=== PATIENT | male | born 1935 | race Caucasian/White ===

== ENCOUNTER → 2020-03-05 | Outpatient (CLI) | payer MEDICARE ==
[2020-03-05] VITALS (15 sets, daily range): BP systolic 136–194; BP diastolic 81–105
--- NOTE | 2020-03-05 12:47 | NUR ---
PATIENT PORT A CATH ACCESSED FOR PROCEDURE FOLLOWING GUIDELINES IN OUR POLICY AND PROCEDURE. WHEN DE-ACCESSING AND PACKING THE PORT, IT FLUSHED WITHOUT DIFFICULTY HOWEVER WHEN ENGAGING IN MAINTAINING THE PORT FOR FUTURE USE, WHEN PULLING THE NEEDLE OUT OF THE PORT SEPTUM, BLOOD CAME OUT OF THE PORT WITH FORCE. PRESSURE DRESSING PLACED BOLA THE PUNCTURE SITE AND HEMOSTASIS ACHIEVED AFTER 2-3 MIN OF HOLDING PRESSURE. DISCUSSED WITH DR. ALEXANDER AND CONSULTED DR. MAYA FOR GUIDANCE AND BOTH SAID IT WAS NOTHING TO WORRY ABOUT.
--- NOTE | 2020-03-05 13:25 | TEE ---
[place] [address] TRANSESOPHAGEAL ECHOCARDIOGRAM Name: JENNA GARCIA JR Room: [facility]#: [id number] Admission: 03/05/20 Attend Phys: Ash Huffman MD Discharge: Date of : 31 Date of Service: 03/05/20 1325 Report #: [id number] THIS REPORT FOR: cc: Boom Eaton John E. DO Blick,Ash Hyde MD [facility] ~ APPROVED REPORT Study performed: 03/05/2020 10:05:44 EXAM: Transesophageal Echocardiogram Patient Location: [facility] BSA: 2.29 HR: 83 bpm BP: 161/93 mmHg Other Information Study Quality: Good Indications Atrial Fibrillation Echo Enhancing Agent Indication: evaluate watchman Agent(s) / Amount(s) Used: Agitated Saline cc Procedure After obtaining informed consent, patient underwent transesophageal echo in the [facility]. Type of Sedation : Conscious Sedation Sedation was administered by Diony Ureña RN. Sedation was achieved intravenously with: Versed (8) Fentanyl (125) Transesophageal probe was inserted and advanced into esophagus without difficulty by Ash Huffman MD, [facility]. Echo enhancement indication: R/O Septal defect. Echo enhancement agent administered: Agitated Saline The KATH was performed without complications. Throughout the procedure, the blood pressure, pulse oximetry, cardiac rhythm, and rate were monitored. The patient tolerated the procedure without adverse effects. Recovery from conscious sedation was uneventful and [place] [address] TRANSESOPHAGEAL ECHOCARDIOGRAM Name: JENNA GARCIA JR Room: [facility]#: [id number] Admission: 03/05/20 Attend Phys: Ash Huffman MD Discharge: Date of : 31 Date of Service: 03/05/20 1325 Report #: [id number] Left Ventricle The left ventricle is normal size. There is normal LV segmental wall motion. There is normal left ventricular wall thickness. The left ventricular systolic function is normal. The left ventricular ejection fraction is within the normal range. LVEF is 55-60%. Right Ventricle The right ventricle is normal size. Atria Watchman Device is present in the left atrial appendage with no motion noted. No flow noted by color doppler Left atrium is moderately dilated. Injection of bubbles documented no interatrial shunt. Right atrium is mildly dilated. tranvenous catheter noted in the right atrium Aortic Valve The Aortic valve is sclerotic. Trace aortic regurgitation. Mitral Valve The mitral valve is normal in structure. moderate Mitral regurgitation jet is eccentrically directed. Tricuspid Valve The tricuspid valve is normal in structure. Trace tricuspid regurgitation. Pulmonic Valve The pulmonary valve is normal in structure. no pulmonic regurgitation. Great Vessels The aortic root is normal in size. <Conclusion> LVEF is 55-60%. Watchman Device is present in the left atrial appendage with no motion noted. No flow noted by color doppler Left atrium is moderately dilated. Right atrium is mildly dilated. tranvenous catheter noted in the right atrium Injection of bubbles documented no [place] [address] TRANSESOPHAGEAL ECHOCARDIOGRAM Name: JENNA GARCIA JR Room: [facility]#: [id number] Admission: 03/05/20 Attend Phys: Ash Huffman MD Discharge: Date of : 31 Date of Service: 03/05/201324 Report #: [id number] The Aortic valve is sclerotic. moderate Mitral regurgitation jet is eccentrically directed. <ELECTRONICALLY SIGNED> By: Ash Huffman MD, [facility] 03/05/201324 24 24 Ash Huffman MD, [facility] /INF
--- NOTE | 2020-03-05 15:41 | H ---
[place] [address] HISTORY AND PHYSICAL Name: JENNA GARCIA JR Room: [facility]#: [id number] Admission: 03/05/20 Attend Phys: Ash Huffman MD, F Discharge: Date of : 31 Report #: [id number] THIS REPORT FOR: //name// cc: Boom Eaton John E. DO ~ CC: Ash Eaton MD DATE OF SERVICE: 03/05/2020 CARDIOLOGY PREOPERATIVE HISTORY AND PHYSICAL PRIMARY CARE PHYSICIAN: Boom Eaton MD HISTORY OF PRESENT ILLNESS: The patient is an 84-year-old white male who was brought to the outpatient department to undergo a transesophageal echocardiogram. The patient has a history of permanent atrial fibrillation. He was anticoagulated in the past, but developed hematuria. A year ago, he had a Watchman placed at . Previous nuclear stress test showed no ischemia. He denies any recent chest pain, shortness of breath. He does have chronic edema. He denied any palpitation or lightheadedness. He is due for transesophageal echocardiogram at this time for followup of the Watchman device. PAST MEDICAL AND SURGICAL HISTORY: He was diagnosed with bladder cancer, had left nephrectomy at [facility] in August of this year. He is now receiving chemotherapy through an indwelling catheter. He has had previous appendectomy, cataract extraction, cholecystectomy, hernia repair, back surgery, knee replacement. He has a history of hyperlipidemia, hypertension. CURRENT MEDICATIONS: Include aspirin, diltiazem, Cardura, Proscar, Lasix, hydralazine, hydrochlorothiazide, Bystolic, Protonix, potassium, Crestor. ALLERGIES: HE HAS AN ALLERGY TO KEFLEX. FAMILY HISTORY: Negative for heart disease. SOCIAL HISTORY: He is . He and his live in [place]. Quit smoking years ago, rarely drinks alcohol. REVIEW OF SYSTEMS: He has had no history of stroke, asthma, previous carotid Doppler study showed mild stenosis. No history of kidney disease, psychiatric illness or chronic skin condition. PHYSICAL EXAMINATION: GENERAL: Revealed an elderly male [place] [address] HISTORY AND PHYSICAL Name: JENNA GARCIA Liseth FALLON Room: [facility]#: [id number] Admission: 03/05/20 Attend Phys: Ash Huffman MD, F Discharge: Date of : 31 Report #: [id number] VITAL SIGNS: Blood pressure 140/80, pulse is 80 and irregular. HEENT: He was anicteric. Conjunctivae were pink. Mucous membranes moist. NECK: Veins do not appear distended. CHEST: Clear to auscultation. CARDIAC: Regular rhythm. No significant murmur. ABDOMEN: Soft. EXTREMITIES: Had trace edema. SKIN: Cool and dry. DIAGNOSTIC DATA: ECG shows atrial fibrillation with a right bundle-branch block. IMPRESSION AND RECOMMENDATIONS: 1. Persistent atrial fibrillation. Rate controlled with calcium adarsh and beta-adarsh. The patient is not anticoagulated because of previous history of a Watchman device. 2. Previous placement of Watchman device. Recommend KATH to evaluate for residual flow. I discussed indications, alternatives and risks of the procedure with the patient and he agreed to proceed. 3. Hyperlipidemia. The patient is on a statin drug. 4. Essential hypertension. The patient is on calcium adarsh, alpha adarsh, hydralazine, diuretic, ARB and beta-adarsh. 5. Bladder cancer. The patient last received chemotherapy 10 days ago. <ELECTRONICALLY SIGNED> By: Ash Huffman MD, FACC 03/05/20 1541 [id number] Huffman MD, FACC /nt
== END | disposition home or self-care (01) ==
LOC: M.CL 09:06
PROVIDERS: ATTEND Internal Medicine Cardiovascular Disease
DX: I48.91 Unspecified atrial fibrillation (principal); I08.3 Combined rheumatic disorders of mitral, aortic and tricuspid valves; I10 Essential (primary) hypertension; E78.5 Hyperlipidemia, unspecified; C67.9 Malignant neoplasm of bladder, unspecified; Z98.890 Other specified postprocedural states; Z79.899 Other long term (current) drug therapy; Z90.49 Acquired absence of other specified parts of digestive tract; Z90.5 Acquired absence of kidney; Z79.01 Long term (current) use of anticoagulants; Z88.8 Allergy status to other drugs, medicaments and biological substances